=== PATIENT | female | born 1970 | race Caucasian/White ===

== ENCOUNTER 2016-07-10 20:17 | Emergency (ER) | payer OTHER ==
[~2016-07-10] VITALS: Ht 160 cm; Wt 75.0 kg
[2016-07-10 20:55] VITALS: Ht 160 cm; Wt 75.0 kg
[2016-07-10] MEDS ORDERED: EPIN0.3P4 INJ (21:17)
[2016-07-10] MEDS ORDERED: PRED50TA PO (21:17)
[2016-07-10] MEDS ORDERED: FAMO-18 PO (21:17)
[2016-07-10] MEDS ORDERED: BEN50 PO (21:17)
--- NOTE | 2016-07-10 22:04 | ERD ---
ER Documentation Chief Complaint Date/Time DATE: 07/10/16 TIME: 22:02 Chief Complaint Hives and itchiness x2 days HPI 46 year old female presents here in the ER for complaints of rash and itching all over body for 2 days, took hydroxyzine w/ mild relief. denies lip swelling, tongue swelling or stridor, denies shortness of breath. denies dizziness, denies family member with same symptoms. denies fever or chills. ROS All systems reviewed and are negative except as per history of present illness. Medications Home Meds Active Scripts Epinephrine (Epipen 2-Tobias) 0.3 Mg/0.3 Ml Pen.injctr, 1 EA INJ ONCE Y for ALLERGIC REACTION, #1 EA Prov:SILVIA TOMAS NP 07/10/16 Famotidine* (Pepcid*) 20 Mg Tablet, 20 MG PO BID, #20 TAB Prov:SILVIA TOMAS NP 07/10/16 Prednisone* (Prednisone*) 50 Mg Tablet, 50 MG PO DAILY for 5 Days, TAB Prov:SILVIA TOMAS NP 07/10/16 Diphenhydramine Hcl* (Benadryl*) 50 Mg Cap, 50 MG PO Q6H Y for ITCHING/RASH, # 30 CAP Prov:SILVIA TOMAS NP 07/10/16 Allergies Allergies: Coded Allergies: No Known Allergy (Unverified , 07/10/16) PMhx/Soc Medical and Surgical Hx: pt denies Medical Hx, pt denies Surgical Hx FmHx Family History: No coronary disease, No diabetes, No other Physical Exam Vitals Vital Signs Date Time Temp Pulse Resp B/P Pulse Ox O2 Delivery O2 Flow Rate FiO2 07/10/16 20:55 97.8 94 18 153/82 100 Physical Exam GENERAL: The patient is well developed and appropriate for usual state of health, in no apparent distress. CHEST: Clear to auscultation bilaterally. There are no rales, wheezes or rhonchi. HEART: Regular rate and rhythm. No murmurs, clicks, rubs or gallops. No S3 or S4. ABDOMEN: Soft, nontender and nondistended. Good bowel sounds. No rebound or guarding. No gross peritonitis. No gross organomegaly or masses. No [place] sign or McBurney point tenderness. BACK: No midline or flank tenderness. EXTREMITIES: Equal pulses bilaterally. There is no peripheral clubbing, cyanosis or edema. No focal swelling or erythema. Full range of motion. Grossly neurovascularly intact. NEURO: Alert and oriented. Cranial nerves 2-12 intact. Motor strength in all 4 extremities with 5/5 strength. Sensation grossly intact. Normal speech and gait. SKIN: Maculopapular rash noted all over the body. There is no apparent ecchymosis or petechia. The skin is warm and dry. HEMATOLOGIC AND LYMPHATIC: There is no evidence of excessive bruising or lymphedema. No gross cervical, axillary, or inguinal lymphadenopathy. Procedures/MDM Medical decision making: Patient's rash all over the body is most likely consistent with urticaria, possible allergic reaction. At this time, no angioedema, no symptoms of anaphylactic shock. Patient appears well and is hemodynamically stable. No symptoms of any contagious rash at this time. Patient took hydroxyzine for itching, was given different medications. Patient was given Benadryl prednisone Pepcid have been as necessary, is advised to follow with primary care doctor in 1-2 days for reevaluation patient was advised to return to emergency department for any worsening symptoms. Departure Diagnosis: Primary Impression: Hives Condition: Stable Patient Instructions: SILVIA Powell NP Jul 10, 2016 22:03
== END 2016-07-10 21:21 | disposition home or self-care (01) ==
LOC: E/R 20:17
DX: L50.9 Urticaria, unspecified (principal)
CPT/HCPCS: 99283